=== PATIENT | male | born 1980 | race Two or more races ===

== ENCOUNTER 2019-05-15 13:13 | Emergency (ER) | payer SELFPAY ==
[2019-05-15 14:45] VITALS: BP 138/91
--- NOTE | 2019-05-15 15:41 | RAD ---
Two-view chest dated 05/15/2019. No comparison available. Clinical data indication: Cough. FINDINGS: PA and lateral views obtained. Heart and mediastinal contours are stable. Lungs are clear. No consolidation or pleural effusion. No pneumothorax. IMPRESSION: No acute radiographic abnormality. Electronically signed by: Norm Allen MD (05/15/2019 3:38 PM) [facility]
--- NOTE | 2019-05-15 15:48 | PHYS DOC ---
Past Medical History Past Medical History: No Pertinent History Past Surgical History: No Surgical History, Other Additional Past Surgical Histo: testicular surgery Alcohol Use: Occasionally Drug Use: None Adult General Chief Complaint Chief Complaint: SHORTNESS OF BREATH HPI HPI Patient is a 38 year old male, accompanied by his , who presents to the emergency department with complaints of intermittent dry cough for the last 2 we eks. Patient states when he is at work around dust he feels short of breath. He denies any fever, ear pain, nausea, vomiting, diarrhea, abdominal pain, chest pain, or palpitations. Patient states he has had a sore throat and some nasal congestion. He currently denies any pain. Patient denies any medical or surgical history. He states he does smoke about 6 cigarettes a day. Currently his vital signs are blood pressure 138/91, heart rate is 64, oxygen saturation 100% on room air, respiratory rate 18 nonlabored. All other ROS is neg unless otherwise noted in HPI. Review of Systems Review of Systems See Above Allergies Allergies Allergies Coded Allergies Type Severity Reaction Last Updated Verified No Known Drug Allergies 01/05/16 No Physical Exam Physical Exam See Above Constitutional: Well developed, well nourished, no acute distress, non-toxic appearance. [] HENT: Normocephalic, atraumatic, bilateral external ears normal, posterior pharynx normal, oropharynx moist, no oral exudates, nose normal. [] Eyes: PERRLA, EOMI, conjunctiva normal, no discharge. [] Neck: Normal range of motion, no tenderness, supple, no stridor. [] Cardiovascular:Heart rate regular rhythm, no murmur [] Lungs & Thorax: Bilateral breath sounds clear to auscultation, Respirations even and unlabored, no retractions, no respiratory distress [] Skin: Warm, dry, no erythema, no rash. [] Back: No tenderness Extremities: No cyanosis, ROM intact, no edema. [] Neurologic: Alert and oriented X 3, no focal deficits noted. [] Psychologic: Affect normal, judgement normal, mood normal. [] Current Patient Data Vital Signs Vital Signs Date Time Temp Pulse Resp B/P (MAP) Pulse Ox O2 Delivery O2 Flow Rate FiO2 05/15/19 14:45 98.4 72 17 138/91 (107) 98 Room Air 98.4 EKG EKG [] Radiology/Procedures Radiology/Procedures PROCEDURE: CHEST PA & LATERAL Two-view chest dated 05/15/2019. No comparison available. Clinical data indication: Cough. FINDINGS: PA and lateral views obtained. Heart and mediastinal contours are stable. Lungs are clear. No consolidation or pleural effusion. No pneumothorax. IMPRESSION: No acute radiographic abnormality. [] Course & Med Decision Making Course & Med Decision Making Pertinent Labs and Imaging studies reviewed. (See chart for details) Patient presented for evaluation of intermittent dry cough and shortness of breath that is worse at work for the last 2 weeks. Chest x-ray was unremarkable. Patient's vital signs were stable. Encouraged patient to wear a mask at work to prevent inhaling toxic fumes and dust. Recommend that he follows up with primary care provider for further evaluation and treatment. Return to the ER if symptoms worsen. Patient verbalized an understanding of home care, medications, follow-up, and return to ED instructions and was in agreement with the plan of care. [] Dragon Disclaimer Dragon Disclaimer This electronic medical record was generated, in whole or in part, using a voice recognition dictation system. Departure Departure Impression: Primary Impression: Cough in adult patient Disposition: 01 HOME, SELF-CARE Condition: STABLE Referrals: NO PCP (PCP) Patient Instructions: Cough, Adult, [id number] Additional Instructions: I recommend that you wear a mask at work when around dust and other noxious airway irritants. QUIT SMOKING. Avoid airway triggers such as smoke, fragrance, dust, and pollen. May take [id number] cough suppressants as needed. Follow-up with your primary care doctor for further evaluation. Return to the ER if symptoms worsen. NICOLE HUIZAR SIZER HAND May 15, 2019 15:48
== END 2019-05-15 16:11 | disposition home or self-care (01) ==
LOC: ER 13:13
DX: R05 Cough (principal); R06.02 Shortness of breath; R09.81 Nasal congestion; F17.210 Nicotine dependence, cigarettes, uncomplicated; Z98.890 Other specified postprocedural states
CPT/HCPCS: 71046; 99284